=== PATIENT | female | born 1990 | race African-American/Black ===

== ENCOUNTER 2022-10-08 12:12 | Emergency (ER) | payer OTHER ==
[2022-10-08 12:21] VITALS: BP 119/76
--- NOTE | 2022-10-08 12:56 | ED Physician Documentation ---
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 Had burning feeling to eyes. Flushed with water. Contacts are not in. Still having burning feeling so to ER.) Location: Both Quality / character: Burning Associated symptoms: Tearing. 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 HEENT: None Psych: None Musculoskeletal: None Derm: None - Past Surgical History Past Surgical History: No - Present Medications Home Medications: Ambulatory Orders Medication Instructions Recorded Confirmed Ketorolac Tromethamine 2 drops EACHEYE QID 3 Days #10 ml 10/08/22 - Allergies Allergies/Adverse Reactions: Allergies Allergy/AdvReac Type Severity Reaction Status Date / Time No Known Drug Allergies Allergy Verified 10/08/22 12:16 - Social History Does the pt smoke?: No Smoking Status: Never smoker Does the pt drink ETOH?: No Does the pt have substance abuse?: No - Immunizations Immunizations are current?: Yes PD ED PE NORMAL - Vitals Vital signs reviewed: Yes - General General: Alert and oriented X 3, Well developed/nourished, Other (appears in discomfort, improved with proparacaine. ) PD ED PE EXPANDED - Eyes Eyes: PERRL, EOMI, Both eyes, Injected conj/sclera (mild hyperemia lower conjunctivae both sides. ). No: Eyelid injury, Eyelid swelling, Corneal FB, Corneal ulcer, Fluorescein uptake Results - Vitals Vitals: Vital Signs - 24 hr 10/08/22 12:16 Temperature 36.5 C Heart Rate 63 Respiratory 18 Rate Blood Pressure 119/76 O2 Saturation 99 Oxygen O2 Source Room air PD Medical Decision Making - ED course Complexity details: considered differential (chemical irritation of eyes. No erosive lesions by staining. I looked up the solution and treatment was just irrigation. She had irrigated at home and we did saline irrigation here as well. ), d/w patient Departure - Departure Disposition: 01 Home, Self Care Clinical Impression: Chemical conjunctivitis of both eyes Condition: Stable Record reviewed to determine appropriate education?: Yes Instructions: ED Chemical Conjunctivitis Follow-Up: [facility] [Provider Group] Prescriptions: Ketorolac Tromethamine 2 drops EACHEYE QID 3 Days #10 ml Comments: Your eyes appear slightly irritated and correlates with your symptoms. I do not see any signs of damage to the surface on exam. This should improve over the next day or so and could be helped with some anti-inflammatory eyedrops. I sent a prescription to the [email or web address] pharmacy for these. Rest today off work. I would anticipate improvement enough to be back to work tomorrow. Forms: Activity restrictions Discharge Date/Time: 10/08/22 13:56
== END 2022-10-08 13:56 | disposition home or self-care (01) ==
LOC: ED 12:12
DX: H10.213 Acute toxic conjunctivitis, bilateral (principal); T50.995A Adverse effect of other drugs, medicaments and biological substances, initial encounter
CPT/HCPCS: 99281; 99283

== ENCOUNTER 2023-03-30 17:04 | Emergency (ER) | payer OTHER ==
[2023-03-30] MEDS ORDERED: FAMOTIDINE 20 MG/2 ML VIAL IVP STA (17:26)
[2023-03-30] MEDS ORDERED: ONDANSETRON 4 MG/2 ML VIAL IVP STA (17:26)
[2023-03-30 17:38] LABS: BASOPHILS % (AUTO) 0.3 %; EOSINOPHILS # (AUTO) 0.1 10^3/uL (0.0-0.7); EOSINOPHILS % (AUTO) 0.9 %; HCT - HEMATOCRIT 46.9 % (37.0-47.0); HGB - HEMOGLOBIN 15.7 g/dL (12.0-16.0); LYMPHOCYTES # (AUTO) 1.2 10^3/uL (1.5-3.5); LYMPHOCYTES % (AUTO) 13.1 %; MEAN CORPUSCULAR HEMOGLOBIN 30.3 pg (27.0-31.0); MEAN CORPUSCULAR HGB CONC 33.5 g/dL (32.0-36.0); MEAN CORPUSCULAR VOLUME 90.5 fL (81.0-99.0); MEAN PLATELET VOLUME 10.4 fL (7.9-10.8); MONOCYTES # (AUTO) 0.7 10^3/uL (0.0-1.0); MONOCYTES % (AUTO) 7.7 %; NEUTROPHILS # (AUTO) 7.3 10^3/uL (1.5-6.6); NEUTROPHILS % (AUTO) 77.6 %; PLT - PLATELET COUNT 284 10^3/uL (130-450); RED BLOOD COUNT 5.18 10^6/uL (4.20-5.40); RED CELL DISTRIBUTION WIDTH 12.4 % (12.0-15.0); WHITE BLOOD COUNT 9.4 x10^3/uL (4.8-10.8)
[2023-03-30] MEDS ORDERED: SODIUM CHLORIDE 0.9% 1,000 ML IV STA (17:45)
--- NOTE | 2023-03-30 17:47 | ED Physician Documentation ---
PD HPI ABD PAIN - Stated complaint Stated Complaint: ABD PX/N/V - Chief complaint Chief Complaint: Abd Pain - History obtained from History obtained from: Patient - Additional information Additional information: This is a 32-year-old female who has no significant past medical history who presents with midepigastric pain that started this morning. She states she woke up this morning, vomited once and then had a very crampy tight pain in the mid epigastrium. It improved on its own but then it has come back 5-10 times throughout the day today And seems to be coming more frequently In waves this e vening. She has nausea, no other episodes of vomiting, no diarrhea, no fever or chills. She has not had any urinary symptoms. She denies any chance of stating that she is on her menses. No hematemesis. She did not eat anything unusual yesterday, ate the same food as her parents who are not ill, no spicy foods, denies alcohol use, and does not smoke. No history of gastritis or GERD. She does not take regular NSAIDs. She has not attempted any medication for this. She did attempt to eat some noodles earlier today and has not had much of any other p.o. intake. She does not believe the p.o. intake exacerbated her symptoms. 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 HEENT: None Psych: None Musculoskeletal: None Derm: None - Past Surgical History Past Surgical History: No - Present Medications Home Medications: Ambulatory Orders Medication Instructions Recorded Confirmed Famotidine [Pepcid] 20 mg PO BID #60 tablet 03/30/23 HYDROcod/ACETAM 5/325 [Henderson 5/325] 1 - 2 tablet PO Q6H PRN #10 tablet 03/30/23 Omeprazole 40 mg PO DAILY #30 cap 03/30/23 Ondansetron Odt [Zofran Odt] 4 mg TL Q6H PRN #10 tablet 03/30/23 - Allergies Allergies/Adverse Reactions: Allergies Allergy/AdvReac Type Severity Reaction Status Date / Time No Known Drug Allergies Allergy Verified 03/30/23 17:12 - Social History Does the pt smoke?: No Smoking Status: Never smoker Does the pt drink ETOH?: No Does the pt have substance abuse?: No - Immunizations Immunizations are current?: Yes PD ED PE NORMAL - Vitals Vital signs reviewed: Yes - General General: Alert and oriented X 3, No acute distress, Well developed/nourished - HEENT HEENT: Atraumatic, Moist mucous membranes - Neck Neck: Supple, no meningeal sign, No adenopathy - Cardiac Cardiac: RRR, No murmur, No gallop, No rub, Strong equal pulses - Respiratory Respiratory: No respiratory distress, Clear bilaterally - Abdomen Abdomen: Normal bowel sounds, Non distended, Other (Intermittent epigastric tenderness w/ palpation) - Derm Derm: Normal color, Warm and dry, No rash - Neuro Neuro: Alert and oriented X 3 Eye Opening: Spontaneous Motor: Obeys Commands Verbal: Oriented GCS Score: 15 - Psych Psych: Normal mood, Normal affect Results - Vitals Vitals: Vital Signs - 24 hr 03/30/23 03/30/23 17:12 20:00 Temperature 36.3 C L Heart Rate 73 69 Respiratory 18 18 Rate Blood Pressure 129/77 108/87 H O2 Saturation 98 100 Oxygen O2 Source Room air - Labs Labs: Laboratory Tests 03/30/23 03/30/23 03/30/23 17:25 17:32 17:32 WBC 9.4 RBC 5.18 Hgb 15.7 Hct 46.9 MCV 90.5 MCH 30.3 MCHC 33.5 RDW 12.4 Plt Count 284 MPV 10.4 Neut # (Auto) 7.3 H Lymph # (Auto) 1.2 L [place] # (Auto) 0.7 Eos # (Auto) 0.1 Baso # (Auto) 0.0 Absolute Nucleated RBC 0.00 Nucleated RBC % 0.0 Sodium 137 Potassium 3.6 Chloride 103 Carbon Dioxide 27 Anion Gap 7.0 BUN 12 Creatinine 0.6 Estimated GFR (MDRD) 140 Glucose 105 H Calcium 9.2 Total Bilirubin 1.0 AST 11 ALT 12 Alkaline Phosphatase 51 Total Protein 7.0 Albumin 4.7 Globulin 2.3 Albumin/Globulin Ratio 2.0 Lipase 41 Urine Color YELLOW Urine Clarity HAZY Urine pH 7.5 Ur Specific [place] 1.015 Urine Protein NEGATIVE Urine Glucose (UA) NEGATIVE Urine Ketones NEGATIVE Urine Occult Blood LARGE H Urine Nitrite NEGATIVE Urine Bilirubin NEGATIVE Urine Urobilinogen 2 H Ur Leukocyte Esterase NEGATIVE Urine RBC 11-25 H Urine WBC 0-3 Ur Squamous Epith Cells FEW Squamous Urine Bacteria Few Ur Microscopic Review INDICATED Urine Culture Comments NOT INDICATED Urine HCG, Qual NEGATIVE - Rads (name of study) No standard instances Relevant Findings:: Final report received, See rad report PD Medical Decision Making - ED course Complexity details: reviewed results, re-evaluated patient, considered differential, d/w patient ED course: 32-year-old female presented with midepigastric pain since this morning. Pain is reproducible, comes in waves and is nonradiating in the midepigastrium. Is companied by nausea, 1 episode of vomiting but no further vomiting. On arrival here, the patient is well-appearing though has periods of brief discomfort when she has waves of pain. I suspected gastritis but additional differentials included pancreatitis, cholecystitis cholelithiasis, gastroenteritis, PUD. We obtained labs which are reassuring as listed above, CBC and CMP are all stable. Urinalysis negative for signs of infection, there is some blood though patient is on her menses. She received famotidine and Zofran with minimal improvement in her symptoms she also received IV Toradol, she therefore proceeded with a CT scan of her abdomen pelvis to rule out other more serious causes and CT scan does show likely gastritis, no perforating ulcer. I do believe this is the cause of her symptoms and I suspect it is H. pylori though other gastritis possible. The patient was also given 0.5 mg of IV Dilaudid with improvement in her symptoms.I have asked the patient to see PCP tomorrow and she will need outpatient H. pylori testing. In the meantime we can start her on PPI and H2 blockers as well as Zofran. She was also given a prescription for as needed hydrocodone. She was advised to keep to a bland diet, avoid NSAIDs and alcohol as listed above. I discussed return precautions if she had any hematemesis, fever or worsening symptoms. Departure - Departure Disposition: 01 Home, Self Care Clinical Impression: Gastritis Qualifiers: Gastritis type: unspecified gastritis Chronicity: acute Gastritis bleeding: without bleeding Qualified Code(s): K29.00 - Acute gastritis without bleeding Condition: Good Instructions: ED PUD Vs Gastritis Prescriptions: HYDROcod/ACETAM 5/325 [Henderson 5/325] 1 - 2 tablet PO Q6H PRN #10 tablet PRN Reason: Pain Omeprazole 40 mg PO DAILY #30 cap Famotidine [Pepcid] 20 mg PO BID #60 tablet Ondansetron Odt [Zofran Odt] 4 mg TL Q6H PRN #10 tablet PRN Reason: Nausea / Vomiting Comments: Your symptoms and exam are consistent with gastritis. Your labs are all stable and your CT scan shows possible gastritis, but no other concerning findings. Gastritis is Inflammation and irritation in the top part of the stomach. It can be caused by medication such as ibuprofen, can be caused by alcohol, acidic and spicy food intake, or a bacteria called H. pylori. We do not test for H.pylori in the ER but this can be done in the clinic. I have started you on a medication to help with your symptoms. Please take for the next 2 weeks. If ongoing symptoms, see your primary doctor for follow up. They may refer you to a semi truck driver specialist to perform a test called an endoscopy if your symptoms persist. If you have worsening symptoms, return to the ER. Avoid any spicy foods and do not take aspirin or ibuprofen (advil). Eat a bland and light diet. Do not consume alcohol. Medications sent to the [facility] pharmacy. I am prescribing a short course of narcotic pain medication for you. These are potentially dangerous and addictive medications that should be used carefully. These medications may constipate you. Take an [id number]-[id number] stool softener (docusate) twice daily with plenty of water while taking these medications. If you go 24 hours without a bowel movement, take kezi-puq-puvnbce miralax, per package instructions. Do not drink or drive while taking these medications. If you received narcotic or sedating medications while in the emergency department, do not drive for 24 hours. Store this medication in a safe, secure place and out of reach of children. It is a violation of federal law to give or sell this medication to another person or to use in a manner other than prescribed. The ED will not refill narcotic prescriptions, including prescriptions lost or stolen. To dispose of unwanted medications: 1. [facility] provides a drop box for medication in pill form only (no liquids) 8:00 am to 4:30 p.m. Friday-Friday in the lobby of the [facility], [address] [place] [address]. Empty pills into ziplock bag before disposal. Call [phone] for information. 2.[employer] is a free service available to all [facility] residents. Go to [email or web address] Note that many narcotic pain relievers also contain Tylenol/acetaminophen. Please ensure that your total dose of acetaminophen from all sources does not exceed 3 g (3000 mg) per day. Forms: PCP List, Activity restrictions
[2023-03-30 17:57] LABS: ALBUMIN 4.7 g/dL (3.2-5.5); CALCIUM 9.2 mg/dL (8.5-10.3); CREATININE 0.6 mg/dL (0.6-1.3); POTASSIUM 3.6 mmol/L (3.5-4.5)
[2023-03-30] MEDS ORDERED: KETOROLAC 30 MG/ML VIAL IVP STA (18:08)
[2023-03-30 18:47] LABS: BILIRUBIN,URINE NEGATIVE (NEGATIVE); GLUCOSE, URINE (UA) NEGATIVE (NEGATIVE); KETONES,URINE (UA) NEGATIVE (NEGATIVE); LEUKOCYTE ESTERASE, URINE NEGATIVE (NEGATIVE); NITRITE,URINE NEGATIVE (NEGATIVE); OCCULT BLOOD,URINE LARGE (NEGATIVE); PH,URINE 7.5 PH (5.0-7.5); PROTEIN,URINE NEGATIVE (NEGATIVE); UROBILINOGEN,URINE 2 E.U./dL (NORMAL)
[2023-03-30 18:49] LABS: CLARITY,URINE HAZY (CLEAR); HCG UR QUAL NEGATIVE
[2023-03-30 18:59] LABS: BACTERIA,URINE Few /HPF (None Seen); SQUAMOUS EPITHELIAL CELL,UR FEW Squamous (<= Few); WBC,URINE 0-3 /HPF (0-5)
[2023-03-30] MEDS ORDERED: iohexoL-300 100 ML VIAL IVP ONE (20:02)
--- NOTE | 2023-03-30 20:03 | CT Report ---
PROCEDURE: ABDOMEN/PELVIS W INDICATIONS: epigastric/RUQ pain CONTRAST: 100ml o mni 300 TECHNIQUE: After the administration of intravenous contrast, 5 mm thick sections acquired from the diaphragms to the symphysis. 5 mm thick coronal and sagittal reformats were acquired. For radiation dose reducti on, the following was used: automated exposure control, adjustment of mA and/or kV according to mario ent size. COMPARISON: None. FINDINGS: Image quality: Excellent. Lung bases and heart: Unremarkable. Liver: No solid mass. Gallbladder and biliary tree: No radiopaque stones or wall thickening. No biliary dilation. Spleen: No splenomegaly. Pancreas: No pancreatic ductal dilation. Adrenals: No adrenal nodule. Kidneys and ureters: No hydronephrosis. No renal cystic lesion which requires follow up. No solid mas s. Bowel and peritoneum: Bowel wall thickening is seen in the antrum and pyloric region of the stomach. No signs of small bowel obstruction. No pericolonic inflammatory changes. Appendix is unremarkable. N o ascites or pneumoperitoneum. Lymph nodes: No central or retroperitoneal adenopathy. Vessels: No infrarenal aortic aneurysm. PELVIS Reproductive organs: Unremarkable. Bladder: No abnormal wall thickening, accounting for underdistension. Pelvic lymph nodes: No pelvic adenopathy by size criteria. Bones: No aggressive osseous abnormality. Other: No significant ventral or inguinal hernia. IMPRESSION: Bowel wall thickening in the gastric antrum and pyloric regions is suspicious for possible gastritis. No penetrating ulcer is seen. Reviewed by: Jonnathan Macario MD on 03/30/2023 8:01 PM PST Approved by: Jonnathan Macario MD on 03/30/2023 8:01 PM PST Station ID: [id number]
[2023-03-30] MEDS ORDERED: HYDROmorphone 1 MG/ML CARPUJECT IVP STA (20:12)
[2023-03-30] MEDS ORDERED: HYDROcod/ACET 5/325 Prepack 4 PO STA (20:19)
[2023-03-30 20:39] VITALS: BP 108/69
[2023-03-30] MEDS ORDERED: ONDANSETRON ODT 4 MG TABLET TL STA (20:54)
[2023-03-30] MEDS ORDERED: ONDANSETRON ODT 4 MG Prepack 2 TL PRN (20:54)
[2023-03-30 21:34] VITALS: O2SAT 98
== END 2023-03-30 21:29 | disposition home or self-care (01) ==
LOC: ED 17:04
DX: K29.00 Acute gastritis without bleeding (principal)
CPT/HCPCS: 36415; 74177; 80053; 81001; 81025; 83690; 85025; 96374; 96375; 99284; J1170; Q0162; Q9967; 81003; 87086